=== PATIENT | female | born 2005 | race American Indian/Alaskan Native ===

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

== ENCOUNTER 2025-06-04 16:32 | Emergency (ER) | payer MEDICAID | END 2025-06-04 18:07 | disposition home or self-care (01) | LOC: JP.ED 16:32 | DX: J10.1 Influenza due to other identified influenza virus with other respiratory manifestations (principal) | CPT/HCPCS: 87428-QW; 99283 ==